=== PATIENT | female | born 1960 | race Caucasian/White ===

== ENCOUNTER 2017-09-06 10:09 | Emergency (ER) | payer OTHER ==
[~2017-09-06] VITALS: Ht 162.6 cm; Wt 58.1 kg
[2017-09-06 10:13] VITALS: BP 112/75
--- NOTE | 2017-09-06 10:22 | ED HEADACHE COMPLAINT ---
History of Present Illness General Chief Complaint: Headache Stated Complaint: HOLDEN SINCE YESTERDAY SIB PRIMARY Source: patient Exam Limitations: no limitations Vital Signs & Intake/Output Vital Signs & Intake/Output Vital Signs Date Time Temp Pulse Resp B/P B/P Pulse O2 O2 Flow FiO2 Mean Ox Delivery Rate 09/06 1013 98.7 92 15 112/75 97 Room Air Room Air Allergies Coded Allergies: No Known Allergies (09/06/17) Reconcile Medications Butalb/Acetaminophen/Caffeine (Gteril-Ighyrqbf-Hsoj 50-325-40) 50 MG-325 MG-40 MG TABLET 1-2 TAB PO Q8P PRN HEADACHE Triage Note: PT SENT TO ED BY DR. PORTER FOR FURTHER EVALUATION OF DULL HEADACHE TO FRONT AND TOP OF HEAD THAT WOKE PT UP YESTERDAY AND PT VOMITED X 1 YESTERDAY. PT STILL FEELS NAUSEOUS. DENIES CHANGE IN VISION. ALL NEUROS INTACT. REPORTS SHE WAS BIT BY A TICK LAST MONTH AND TESTED POSITIVE FOR ANAPLASMOSIS AND IS UNSURE IF IT'S RELATED TO THAT. Triage Nurses Notes Reviewed? yes Onset: Abrupt Duration: day(s): (2) Timing: recent history Quality/Severity: dull Severity Numbers: 7 Head Injury Location: frontal No Modifying Factors: none HPI: 56-year-old female comes into the emergency room with a persistent dull headache that began yesterday when she woke up. It is located in the top of her head to the front of her head. She denies any vision loss. Denies any light sensitivity or noise sensitivity. Some associated nausea and vomiting. Denies any fever chills. Some mild loose stool in the morning. She denies any prior history of headaches like this in the past. She reports that she had a tick bite back in July of this year and the tick was analyzed and it was positive for anaplasmosis but she was not tested. She denies any rashes. Denies any joint pain. Denies any trauma to her head. (Zack Minor) Past History Travel History Traveled to [place] past 21 day No Medical History Any Pertinent Medical History? see below for history Neurological: NONE EENT: NONE Cardiovascular: NONE Respiratory: NONE Gastrointestinal: NONE Hepatic: NONE Renal: NONE Musculoskeletal: NONE Psychiatric: NONE Endocrine: NONE Blood Disorders: PROTEIN C DEFICIENCY Cancer(s): NONE CHURN DRILLER/Reproductive: NONE Surgical History Surgical History: non-contributory Psychosocial History What is your primary language Wolof Tobacco Use: Never used ETOH Use: occasional use Illicit Drug Use: denies illicit drug use Family History Hx Contributory? No (Zack Minor) Review of Systems Review of Systems Constitutional: Reports: no symptoms. Eyes: Reports: no symptoms. Ears, Nose, Throat, Mouth: Reports: no symptoms. Respiratory: Reports: no symptoms. Cardiovascular: Reports: no symptoms. Gastrointestinal/Abdominal: Reports: no symptoms. Genitourinary: Reports: no symptoms. Musculoskeletal: Reports: no symptoms. Skin: Reports: no symptoms. Neurological/Psychological: Reports: see HPI. Hematologic/Endocrine: Reports: no symptoms. Endocrine: Reports: no symptoms. Immunologic/Allergic: Reports: no symptoms. All Other Systems: Reviewed and Negative (Zack Minor) Physical Exam Physical Exam General Appearance: well developed/nourished, no apparent distress, alert, awake Head: atraumatic, normal appearance Eyes: Bilateral: normal appearance, PERRL, EOMI. Ears, Nose, Throat: normal pharynx, normal ENT inspection, hearing grossly normal Neck: normal inspection, supple, full range of motion Respiratory: normal breath sounds, no respiratory distress Cardiovascular: regular rate/rhythm Gastrointestinal: soft Extremities: normal inspection Psychiatric: awake, alert, oriented x 3 Cranial Nerves: normal hearing, normal speech, PERRL Coordination/Gait: normal finger to nose, normal gait Motor/Sensory: no motor/sensory deficits Skin: intact, normal color Core Measures Sepsis Present: No Sepsis Focused Exam Completed? No (Zack Minor) Progress Differential Diagnosis: carotid dissection, cav sinus thromb, cluster HOLDEN, encephalitis, IC mass/tumor, intracranial Hem., meningitis, migraine HOLDEN, musculoskeletal pain, sinusitis, SSS thrombosis, subarach. Hem., tension HOLDEN, temporal arteritis, TMJ syndrome, viral cephalgia Plan of Care: Orders Procedure Date/time Status COMPREHENSIVE METABOLIC PANEL 09/06 1022 Complete CBC WITHOUT DIFFERENTIAL 09/06 1022 Complete Laboratory Tests 09/06/17 1033: Anion Gap 14, Estimated GFR > 60, BUN/Creatinine Ratio 20.0, Glucose 103 H, Calcium 10.0, Total Bilirubin 0.6, AST 21, ALT 17, Alkaline Phosphatase 68, Total Protein 7.4, Albumin 4.5, Globulin 2.9, Albumin/Globulin Ratio 1.6, CBC w Diff NO MAN DIFF REQ, RBC 5.02, MCV 83.6, MCH 27.8, MCHC 33.2, RDW 15.9 H, MPV 7.8, Gran % 82.1 H, Lymphocytes % 10.9 L, Monocytes % 6.5, Eosinophils % 0.4, Basophils % 0.1, Absolute Granulocytes 4.9, Absolute Lymphocytes 0.7 L, Absolute Monocytes 0.4, Absolute Eosinophils 0, Absolute Basophils 0 Diagnostic Imaging: Viewed by Me: CT Scan. Discussed w/RAD: CT Scan. Radiology Impression: PATIENT: CHAPO SALGUERO PRESENT AGE: 56 PATIENT ACCOUNT NO: [id number] : 62 LOCATION: [facility] ORDERING PHYSICIAN: Zack MURCIA SERVICE DATE: 09/06/17 EXAM TYPE : CAT - CT HEAD WO IV CONTRAST EXAMINATION: CT HEAD WITHOUT CONTRAST CLINICAL INFORMATION: Headache. Vomiting. COMPARISON: None. TECHNIQUE: Contiguous axial imaging was performed from the skull base to vertex without intravenous contrast. DLP: 601 mGy-cm. FINDINGS: There is no evidence of acute intracranial hemorrhage or territorial infarction. No abnormal mass effect or midline shift is seen. Lopez to white matter differentiation is well preserved. No extra-axial fluid collections are identified. No hydrocephalus. No significant volume loss. There is no abnormal attenuation within the brain parenchyma. The osseous structures and soft tissues are normal. The mastoid air cells and visualized portions of the paranasal sinuses are well aerated. IMPRESSION: No acute intracranial pathology. DICTATED BY: Hilton Melendez MD DATE/TIME DICTATED:1132 TIRE MAINTENANCE TECHNICIAN:ANNMARIE DATE/TIME TRANSCRIBED:09/06/171132 CONFIDENTIAL, DO NOT COPY WITHOUT APPROPRIATE AUTHORIZATION. <Electronically signed in Other Vendor System> SIGNED BY: Hilton Melendez MD 09/06/171136 (Zack Minor) Departure Departure Disposition: HOME OR SELF CARE Condition: Stable Clinical Impression Primary Impression: Headache Referrals: Brisa IRVING,Wing Molina Additional Instructions: Take Fioricet as prescribed. Follow-up with neurologist provided if headaches persist. Return if any concerns worsening symptoms. Please go over all results of today's visit with your primary care doctor. Contact your primary care doctor to let them know you were here in the emergency room. There may be nonspecific findings which may not be related to your visit today here in the emergency room but may require further evaluation and chronic monitoring by your primary care doctor. If you had a laceration today the chance of foreign body always remains. You should follow-up with your primary care doctor for recheck in 3-5 days for a wound check. If you had an x-ray done there is a chance that a fracture could have been missed on initial read and you should follow-up with your primary care doctor for repeat x-rays if symptoms persist. If your blood pressure was elevated here in the emergency room please have rechecked by cassie primary care doctor within the next 48. If you were prescribed a narcotic here in the emergency room or any type of controlled substances you're not allowed to drive while taking this medication or operate any type of heavy machinery. Narcotics can make you feel lightheaded dizziness nausea and can cause constipation. You may need to machine pecan picker a stool softener. Thank you for choosing [facility] emergency room. Please return to the emergency room immediately if you have any other concerns worsening of symptoms. Departure Forms: Customer Survey General Discharge Information Prescriptions: Current Visit Scripts Butalb/Acetaminophen/Caffeine (Aelxol-Emnctetw-Zgyg 50-325-40) 1-2 TAB PO Q8P PRN HEADACHE #30 TAB Comments 09/06/2017 12:39:52 PM Patient clinically looks well. No apparent distress. Nontoxic appearing. Neurologically intact. Follow-up with PCP. Return if any concerns worsening symptoms. (Charly MURCIA,Zack) PA/COMPENSATION ADVISOR Co-Sign Statement Statement: ED Attending supervision documentation- I saw and evaluated the patient. I have also reviewed all the pertinent lab results and diagnostic results. I agree with the findings and the plan of care as documented in the PA's/COMPENSATION ADVISOR's documentation. x I have reviewed the ED Record and agree with the PA's/COMPENSATION ADVISOR's documentation. [] Additions or exceptions (if any) to the PAs/COMPENSATION ADVISOR's note and plan are summarized below: [] (Yvonne IRVING,Ayaan)
[2017-09-06 10:41] LABS: ABSOLUTE BASOPHIL COUNT 0 /CUMM (0.0-0.2); ABSOLUTE EOSINOPHIL COUNT 0 /CUMM (0.0-0.7); ABSOLUTE GRANULOCYTE CT 4.9 /CUMM (1.4-6.5); ABSOLUTE LYMPH COUNT 0.7 /CUMM (1.2-3.4); ABSOLUTE MONOCYTE COUNT 0.4 /CUMM (0.10-0.60); BASOPHIL % 0.1 % (0.0-2.0); EOSINOPHIL % 0.4 % (0-5); GRANULOCYTE % 82.1 % (42.2-75.2); HEMATOCRIT 41.9 % (37-47); MEAN CORPUSCULAR HGB 27.8 PG (27.0-31.0); MEAN CORPUSCULAR HGB CONC 33.2 G/DL (33.0-37.0); MEAN CORPUSCULAR VOLUME 83.6 FL (81.0-99.0); MEAN PLATELET VOLUME 7.8 FL (7.4-10.4); PLATELET COUNT 332 /CUMM (130-400); RBC DISTRIBUTION WIDTH 15.9 % (11.5-14.5); RED BLOOD CELL CT 5.02 /CUMM (4.20-5.40)
[2017-09-06] MEDS ORDERED: BUTALB-ACETAMI1 EACH PO (11:35)
--- NOTE | 2017-09-06 11:37 | CT SCAN REPORT ---
EXAMINATION: CT HEAD WITHOUT CONTRAST CLINICAL INFORMATION: Headache. Vomiting. COMPARISON: None. TECHNIQUE: Contiguous axial imaging was performed from the skull base to vertex without intravenous contrast. DLP: 601 mGy-cm. FINDINGS: There is no evidence of acute intracranial hemorrhage or territorial infarction. No abnormal mass effect or midline shift is seen. Lopez to white matter differentiation is well preserved. No extra-axial fluid collections are identified. No hydrocephalus. No significant volume loss. There is no abnormal attenuation within the brain parenchyma. The osseous structures and soft tissues are normal. The mastoid air cells and visualized portions of the paranasal sinuses are well aerated. IMPRESSION: No acute intracranial pathology.
== END 2017-09-06 11:54 ==
LOC: ERH 10:09
PROVIDERS: Physician Assistant Medical
DX: R51 Headache (principal)